=== PATIENT | female | born 1960 | race African-American/Black ===

== ENCOUNTER 2017-06-03 10:58 | Emergency (ER) | payer OTHER ==
[~2017-06-03] VITALS: Ht 149.9 cm; Wt 87.7 kg
[~2017-06-03 10:58] MED LIST: ANEXSIA 5-3251 EACH PO; CELEBREX200 MG PO; COBAL-10001000 MCG/2 IM; Carafate PO; Claritin,Alavart PO; Colace PO; FLEXERIL10 MG PO; FOLVITE1 M1 PO; Flonase BOTH NARES; LASIX10 MG PO; MARTINIC1 EACH PO; MULTI; NEURONTIN300 MG PO; NORVASC5 MG PO; PHENERGAN25 MG PR; PROTONIX40 MG PO; PriLOSEC PO; Protonix PO; REGLAN5 MG PO; Reglan IV; Reglan PO; Remeron PO; Singulair PO; THERAGRAN1 TABLET PO; ULTRAM50 MG PO; VITAMIN B; VITAMIN D5000 INTUN PO; Vicodin,Lortab 5/500 PO; Vitamin B-12 PO; Vitamin D, Drisdol PO; ZESTRIL,PRINIVI10 MG PO; Zofran PO
[2017-06-03 11:42] LABS: HEMATOCRIT 35.2 % (36.0-46.0); MCH 30.2 PG (29.0-34.0); MCHC 33.2 G/DL (30.0-36.0); MCV 90.7 FL (83-99); MEAN PLAT.VOLUME 10.1 uM^3 (9.5-12.4); NRBC (%) 0.5 /100 WBC (0-0); PLATELET COUNT 227 K/uL (156-360); RBC DIS.WIDTH-CV 12.1 % (11.8-14.6); RED BLOOD COUNT 3.88 M/uL (3.80-5.20); WHITE BLOOD COUNT 4.2 K/uL (4.1-10.2)
[2017-06-03 11:55] LABS: CHLORIDE 107 mEq/L (99-109); POTASSIUM 3.6 mEq/L (3.7-5.4); SODIUM 141 mEq/L (136-147)
[2017-06-03 11:57] LABS: GLUCOSE 95 mg/dL (70-99)
[2017-06-03 11:58] LABS: ANION GAP 5 MEQ/L (2-14)
[2017-06-03 11:59] LABS: TOTAL BILIRUBIN 0.9 mg/dL (0.0-1.0)
[2017-06-03 12:01] LABS: ALKALINE PHOSPHATASE 53 IU/L (3-129); GFR ESTIMATE (CALCULATED) > 59 mL/min/
[2017-06-03 12:02] LABS: UREA NITROGEN (BUN) 12 mg/dL (9-23)
[2017-06-03 13:23] LABS: ADD MIUA? YES; BILIRUBIN NEGATIVE; BLOOD NEGATIVE; COLOR YELLOW ((YELLOW)); GLUCOSE (STRIP) NEGATIVE; KETONES NEGATIVE; LEUKOCYTES TRACE; NITRITE NEGATIVE; PROTEIN (STRIP) 30; SPECIFIC GRAVITY 1.026 (1.000-1.030)
[2017-06-03 13:23] LABS: LIPASE 9 U/L (1.0-51.0)
[2017-06-03 13:30] LABS: BACTERIA RARE /HPF; EPITHELIAL CELLS RARE /HPF; HYALINE CASTS 0-5 /LPF; MUCUS 2+ /LPF; RED BLOOD CELLS 0-5 /HPF (0-5); UCUL ADDED? NO; URIC ACID CRYSTALS 1+ /HPF; WHITE BLOOD CELLS 0-5 /HPF (0-5)
[2017-06-03] MEDS ORDERED: PERCOCET 5/31 TABLET PO (13:56)
[2017-06-03] MEDS ORDERED: ZOFRAN ODT4 MG PO (13:56)
[2017-06-03 14:24] VITALS: BP 118/57
== END 2017-06-03 14:26 | disposition home or self-care (01) ==
LOC: EXP 10:58 → EME 10:58 → EXP 14:26
DX: R10.9 Unspecified abdominal pain (principal); Z98.84 Bariatric surgery status; Z87.442 Personal history of urinary calculi; K21.9 Gastro-esophageal reflux disease without esophagitis; I10 Essential (primary) hypertension; J45.909 Unspecified asthma, uncomplicated
CPT/HCPCS: 74176; 80053; 81003; 83690; 85027; 99281; 99284; J3010

== ENCOUNTER 2018-05-11 14:21 | Emergency (ER) | payer BC ==
[~2018-05-11] VITALS: Ht 149.9 cm; Wt 87.9 kg
[~2018-05-11 14:21] MED LIST changes: +PERCOCET 5/31 TABLET PO; +ZOFRAN ODT4 MG PO
[2018-05-11 16:37] LABS: HEMATOCRIT 35.6 % (36.0-46.0); HEMOGLOBIN 12.1 G/DL (11.9-15.5); MCH 30.5 PG (29.0-34.0); MCV 89.7 FL (83-99); PLATELET COUNT 214 K/uL (156-360); RBC DIS.WIDTH-CV 12.1 % (11.8-14.6); RBC DIS.WIDTH-SD 39.5 % (39-53); RED BLOOD COUNT 3.97 M/uL (3.80-5.20); WHITE BLOOD COUNT 4.6 K/uL (4.1-10.2)
[2018-05-11 16:38] LABS: APPEARANCE CLEAR ((CLEAR)); BILIRUBIN NEGATIVE; BLOOD NEGATIVE; COLOR YELLOW ((YELLOW)); GLUCOSE (STRIP) NEGATIVE; KETONES NEGATIVE; LEUKOCYTES SMALL; NITRITE POSITIVE; PROTEIN (STRIP) NEGATIVE; SPECIFIC GRAVITY 1.025 (1.000-1.030)
[2018-05-11 16:42] LABS: BACTERIA RARE /HPF; EPITHELIAL CELLS 1+ /HPF; HYALINE CASTS 0-5 /LPF; MUCUS 1+ /LPF; RED BLOOD CELLS 0-5 /HPF (0-5); UCUL ADDED? NO; WHITE BLOOD CELLS 0-5 /HPF (0-5)
[2018-05-11 16:46] LABS: ALBUMIN 3.6 g/dL (3.2-4.8); CHLORIDE 107 mEq/L (99-109); POTASSIUM 3.7 mEq/L (3.7-5.4); SODIUM 141 mEq/L (136-147)
[2018-05-11 16:49] LABS: GLUCOSE 86 mg/dL (70-99); TOTAL PROTEIN 6.8 g/dL (6.4-8.3)
[2018-05-11 16:51] LABS: TOTAL BILIRUBIN 0.8 mg/dL (0.0-1.0)
[2018-05-11 16:52] LABS: ALKALINE PHOSPHATASE 64 IU/L (3-129); CREATININE 0.8 mg/dL (0.6-1.3); GFR ESTIMATE (CALCULATED) > 59 mL/min/
[2018-05-11 16:53] LABS: UREA NITROGEN (BUN) 13 mg/dL (9-23)
[2018-05-11 16:54] LABS: AST (GOT) 20 IU/L (2-34)
[2018-05-11 16:55] LABS: ALT (GPT) 13 IU/L (3-49)
[2018-05-11] MEDS ORDERED: FLEXERIL10 MG PO (18:16)
[2018-05-11] MEDS ORDERED: KEFLEX500 MG PO (18:16)
[2018-05-11] MEDS ORDERED: MOBIC7.5 MG PO (18:16)
[2018-05-11 18:41] VITALS: BP 137/61
== END 2018-05-11 18:43 | disposition home or self-care (01) ==
LOC: EME 14:21
PROVIDERS: Nurse Practitioner Family
DX: N39.0 Urinary tract infection, site not specified (principal); R19.7 Diarrhea, unspecified; I10 Essential (primary) hypertension; K21.9 Gastro-esophageal reflux disease without esophagitis; Z87.442 Personal history of urinary calculi; Z98.84 Bariatric surgery status; Z90.49 Acquired absence of other specified parts of digestive tract; F41.9 Anxiety disorder, unspecified; J45.909 Unspecified asthma, uncomplicated
CPT/HCPCS: 74177; 80053; 81003; 85027; 87177; 87493; 87506; 99281; 99284; J1885; J7030